=== PATIENT | male | born 1945 | race Caucasian/White ===

== ENCOUNTER → 2016-07-09 | Outpatient (CLI) | payer MEDICARE, OTHER ==
[~2016-07-09] MED LIST: ALN70T PO
--- OUTSIDE RECORDS SUMMARY | 2016-07-09 10:16 | XMS REPORT | Continuity of Care Document ---
Author Author [facility] Organization [facility] Address Unknown Phone Unavailable Care Team Providers Care Die Cast Engineer Name Role Phone Natividad Lake PCP [phone] Source Comments Some departments are not documenting in the electronic medical record. If you do not see the information that you expected, contact Release of Information in the Health Information Management department at [phone] for further assistance in locating additional records.[facility] Active Allergies and Adverse Reactions No Known Allergies Current Medications Prescription Sig. Disp. Refills Start End Date Status Date alendronate (FOSAMAX) 70 Take 1 Tab by mouth Every Active mg tablet Thursday. CALCIUM CARBONATE/VITAMIN Take 1 Tab by mouth Active D2 (CALCIUM + VITAMIN D Daily. PO) metoprolol XL (TOPROL XL) Take 1 Tab by mouth Active 25 mg tablet Daily. oxycodone/acetaminophen Take 1-2 Tabs by mouth 40 0 04/24/20 Active (PERCOCET) 5/325 mg Every 4 Hours as needed 09 tablet for Pain. hyoscyamine (LEVSIN/SL) 1 Tab Every 4 Hours as 40 2 04/24/20 Active 0.125 mg tablet needed. 09 senna/docusate Take 2 Tabs by mouth 60 2 04/24/20 Active (SENOKOT-S) 8.6/50 mg Daily. 09 tablet [place]-3 Fatty Take 1 Cap by mouth Three 0 0 04/24/20 Active Acids-Vitamin E (FISH Times Daily. Avoid this 09 OIL) 1,000 mg Cap medication until quinones catheter comes out. levofloxacin (LEVAQUIN) Take 1 Tab by mouth 16 0 04/24/20 Active 250 mg tablet Daily. 09 polymyxin/bacitracin/soraya/ Apply to affected area 1 0 04/24/20 Active HC (CORTISPORIN) 1 % Three Times Daily. Small 09 topical ointment amount to head of penis/catheter 3-4 times daily to reduce irritation. May not need to fill this script if you take tube from hospital home with you and it lasts until catheter removal. oxybutynin XL (DITROPAN Take 1 Tab by mouth 20 0 04/24/20 Active XL) 15 mg tablet Daily. 09 vitamins, multiple Cap Take 1 Cap by mouth 0 0 04/24/20 Active Daily. Avoid this 09 medication until after the quinones catheter comes out. Active Problems Problem Noted Date Prostate cancer (HCC) 04/24/2009 Prostate cancer (HCC) 04/24/2009 Social History Tobacco Use Types Packs/Day Years Used Date Never Assessed Last Filed Vital Signs Vital Sign Reading Time Taken Blood Pressure 119/63 04/24/2009 11:25 AM SCRAP WORKER Pulse 67 04/24/2009 11:25 AM SCRAP WORKER Temperature 37.4 C (99.3 F) 04/24/2009 11:25 AM SCRAP WORKER Respiratory Rate - - Height 1.854 m (6' 1") 04/03/2009 3:00 PM SCRAP WORKER Weight 87.7 kg (193 lb 5.5 oz) 04/03/2009 3:00 PM SCRAP WORKER Body Mass Index 25.51 04/03/2009 3:00 PM SCRAP WORKER Oxygen Saturation 97% 04/24/2009 11:25 AM SCRAP WORKER Plan of Care Health Maintenance Due Date Last Done Comments Physical (Comprehensive) 1952 Exam Pertussis Vaccine 1957 Tetanus Vaccine 1963 Colorectal Cancer 01/28/1996 Screening Shingles Vaccine 2006 Prevnar/Pneumovax (#1) 2011 Influenza Vaccine 01/24/2016 Results from Last 3 Months Not on file
== END ==
LOC: CARD 10:14
PROVIDERS: ATTEND Internal Medicine
DX: R00.2 Palpitations (principal)
CPT/HCPCS: 93225; 93226

== ENCOUNTER → 2016-07-30 | Outpatient (CLI) | payer MEDICARE, OTHER ==
--- OUTSIDE RECORDS SUMMARY | 2016-07-30 07:33 | XMS REPORT | Continuity of Care Document ---
Author Author [facility] Organization [facility] Address Unknown Phone Unavailable Care Team Providers Care Geometry Tutor Name Role Phone Natividad Lake PCP [phone] Source Comments Some departments are not documenting in the electronic medical record. If you do not see the information that you expected, contact Release of Information in the Health Information Management department at [phone] for further assistance in locating additional records.[facility] Active Allergies and Adverse Reactions No Known [...] Active (SENOKOT-S) 8.6/50 mg Daily. 09 tablet [place]-3 Fatty Take 1 Cap by mouth Three [...] Taken Blood Pressure 119/63 04/24/2009 11:25 AM PIPE STEM SAWYER Pulse 67 04/24/2009 11:25 AM PIPE STEM SAWYER Temperature 37.4 C (99.3 F) 04/24/2009 11:25 AM PIPE STEM SAWYER Respiratory Rate - - Height 1.854 m (6' 1") 04/03/2009 3:00 PM PIPE STEM SAWYER Weight 87.7 kg (193 lb 5.5 oz) 04/03/2009 3:00 PM PIPE STEM SAWYER Body Mass Index 25.51 04/03/2009 3:00 PM PIPE STEM SAWYER Oxygen Saturation 97% 04/24/2009 11:25 AM PIPE STEM SAWYER Plan of Care Health Maintenance Due Date Last Done Comments Physical (Comprehensive) 1952 Exam Pertussis Vaccine 1957 Tetanus Vaccine 1963 Colorectal Cancer 01/28/1996 Screening Shingles Vaccine 2006 Prevnar/Pneumovax (#1) 2011 Influenza Vaccine 01/24/2016 Results from Last 3 Months Not on file
--- NOTE | 2016-07-31 08:43 | ECHOCARDIOGRAPHY REPORT ---
PROCEDURE PHYSICIAN: DONIS PEREZ DATE OF PROCEDURE: 07/30/2016 TWO DIMENSIONAL ECHOCARDIOGRAM REPORT PRIMARY PHYSICIAN: Dr. Montoya OTHER PHYSICIAN: REFERRING PHYSICIAN: ORDERING PHYSICIAN: Dr. Perez INDICATION FOR THE PROCEDURE: 1. Palpitations. 2. Chest discomfort. MEASUREMENTS DERIVED VALUES LV DIAMETER (LAX) NORMALS NORMALS Diastolic 4.1 (3.6-5.2) Eject. Fract. (60%+/-6%) Systolic (2.3-3.9) Diastolic Vol. % Shortening (0.22-0.42) Systolic Vol. Aortic Root 3.4 IVS THICKNESS Diastolic 1.4 (0.6-1.1) LVPW THICKNESS Diastolic 1.3 (0.6-1.1) LA DIAMETER Systolic 3.6 (2.1-3.7) DESCRIPTION: Two-dimensional echocardiography shows normal global left ventricular systolic function with normal regional wall motion. Aortic, mitral and tricuspid valve leaflets, to the extent visualized, seem to have good leaflet excursion. There is no significant pericardial effusion. Doppler imaging shows no evidence of significant valvular regurgitation or stenosis. There is mild concentric left ventricular hypertrophy. Mitral inflow is consistent with grade I diastolic dysfunction of the left ventricle. There is no Doppler evidence of significant valvular stenosis. There is no evidence of significant intracardiac shunt on this transthoracic echocardiographic study. Inferior vena cava appears to be of normal size and does exhibit inspiratory collapse. CONCLUSIONS: 1. Normal global left ventricular systolic function with an ejection fraction of approximately 60 to 65%. 2. No evidence of significant valvular regurgitation or stenosis. 3. Mild concentric left ventricular hypertrophy. Job ID: [id number] Dictated Date: 07/30/2016 17:54:10 Structural Architect Date: 07/31/2016 08:39:13 / wendy
== END ==
LOC: CARD 07:29
PROVIDERS: ATTEND Internal Medicine Cardiovascular Disease
DX: R00.2 Palpitations (principal); R07.89 Other chest pain
CPT/HCPCS: 93306

== ENCOUNTER → 2016-07-31 | Outpatient (CLI) | payer MEDICARE, OTHER ==
[~2016-07-31] MED LIST changes: +CATHETER FLUSH 10 ML SYR IV PRN; +REGADENOSON 0.4 MG/5 ML SYR (LEXISCAN) IV ONE
--- OUTSIDE RECORDS SUMMARY | 2016-07-31 07:32 | XMS REPORT | Continuity of Care Document ---
Author Author [facility] Organization [facility] Address Unknown Phone Unavailable Care Team Providers Care Ocean Rescue Lieutenant Name Role Phone Natividad Lake PCP [phone] Source Comments Some departments are not documenting in the electronic medical record. If you do not see the information that you expected, contact Release of Information in the Health Information Management department at [phone] for further assistance in locating additional records.[facility] [...] Active (SENOKOT-S) 8.6/50 mg Daily. 09 tablet [place]-3 Fatty Take 1 Cap by mouth Three [...] Taken Blood Pressure 119/63 04/24/2009 11:25 AM TAPPER HELPER Pulse 67 04/24/2009 11:25 AM TAPPER HELPER Temperature 37.4 C (99.3 F) 04/24/2009 11:25 AM TAPPER HELPER Respiratory Rate - - Height 1.854 m (6' 1") 04/03/2009 3:00 PM TAPPER HELPER Weight 87.7 kg (193 lb 5.5 oz) 04/03/2009 3:00 PM TAPPER HELPER Body Mass Index 25.51 04/03/2009 3:00 PM TAPPER HELPER Oxygen Saturation 97% 04/24/2009 11:25 AM TAPPER HELPER Plan of Care Health Maintenance Due Date Last Done Comments Physical (Comprehensive) 1952 Exam Pertussis Vaccine 1957 Tetanus Vaccine 1963 Colorectal Cancer 01/28/1996 Screening Shingles Vaccine 2006 Prevnar/Pneumovax (#1) 2011 Influenza Vaccine 01/24/2016 Results from Last 3 Months Not on file
[2016-07-31 09:23] VITALS: BP 139/79
--- NOTE | 2016-07-31 12:36 | STRESS TEST ---
PROCEDURE PHYSICIAN: DONIS PEREZ RESTING AND POST REGADENOSON TECHNETIUM 99M TETROFOSMIN SPECT CT IMAGING DATE OF PROCEDURE: 07/31/2016 ORDERING PHYSICIAN: Dr. Perez PRIMARY PHYSICIAN: Dr. Montoya CLINICAL DIAGNOSIS: Palpitations, chest discomfort. Baseline images were carried out after injection of 10.18 mCi of technetium 99m tetrofosmin. This was followed by 0.4 mg of regadenoson and 30.7 mCi of technetium 99m tetrofosmin for stress imaging. The electrocardiogram showed sinus without any distinct ST segment changes. Isolated premature contractions were seen during the study. The patient tolerated the procedure well. Review of images at rest and following stress, does not indicate any significant perfusion defects consistent with significant myocardial ischemia or infarction. Gated images show normal global left ventricular systolic function with normal regional wall motion. Left ventricular ejection fraction is calculated to be 63%. Left ventricular end-diastolic volume is 75 milliliters. TID is absent (1.1). CONCLUSIONS: 1. No evidence of significant myocardial ischemia or infarction on this study. 2. Normal regional normal motion. 3. Normal global left ventricular systolic function with a calculated ejection fraction of 63%. Job ID: [id number] Dictated Date: 07/31/2016 11:18:35 Contact Finger Assembler Date: 07/31/2016 12:31:14 / joni
== END ==
LOC: CARD 07:29
PROVIDERS: ATTEND Nurse Practitioner Family
DX: R00.2 Palpitations (principal); R07.89 Other chest pain
CPT/HCPCS: 78452; 93017

== ENCOUNTER → 2017-06-25 | Outpatient (CLI) | payer MEDICARE, OTHER ==
[~2017-06-25] MED LIST changes: -CATHETER FLUSH 10 ML SYR IV PRN; -REGADENOSON 0.4 MG/5 ML SYR (LEXISCAN) IV ONE
--- NOTE | 2017-06-25 14:28 | Diagnostic Imaging Report ---
INDICATION: Constipation and abdominal pain. Time of exam: 1:52 PM A single view of the abdomen was obtained. The bowel gas pattern is nonobstructive. There is moderate stool present particularly in the right colon. Small bowel is nondilated. No pathologic calcifications are seen. There is lower lumbar degenerative disc disease noted. IMPRESSION: Moderate stool in the right and transverse colon suggestive of constipation. No other significant abnormality is seen. Dictated by: Dictated on workstation # [id number]
== END ==
LOC: RAD 13:21
PROVIDERS: ATTEND Nurse Practitioner
DX: K59.00 Constipation, unspecified (principal); G89.29 Other chronic pain
CPT/HCPCS: 74018

== ENCOUNTER 2018-10-02 15:52 | Emergency (ER) | payer MEDICARE, OTHER ==
[~2018-10-02] VITALS: Ht 185.4 cm; Wt 81.6 kg
[2018-10-02 16:16] LABS: BILIRUBIN,URINE NEGATIVE (NEGATIVE); CLARITY,URINE CLEAR; COLOR,URINE YELLOW; GLUCOSE, URINE (UA) NEGATIVE (NEGATIVE); KETONES,URINE NEGATIVE (NEGATIVE); LEUKOCYTE ESTERASE ,URINE NEGATIVE (NEGATIVE); NITRITE,URINE NEGATIVE (NEGATIVE); PH,URINE 7 (5-9); PROTEIN,URINE NEGATIVE (NEGATIVE); UROBILINOGEN,URINE NORMAL (NORMAL)
--- NOTE | 2018-10-02 16:19 | ED Abdominal Pain ---
General Chief Complaint: Abdominal/GI Problems Stated Complaint: LFT SIDE PAINS Nursing Triage Note: ARRIVED VIA AMB TO TRIAGE WITH LLQ PAIN STARTING AT NOON AFTER LUNCH. Sepsis Screen: No Definite Risk Source of Information: Patient Exam Limitations: No Limitations History of Present Illness Date Seen by Provider: October 02, 2018 Time Seen by Provider: 16:05 Initial Comments The patient presents to ER by private conveyance with his spouse and chief complaint of some left lower quadrant abdominal pain started around noon just posterior sitting down to eat [employer]. He is not having any nausea or vomiting fevers chills or diarrhea. He thinks he may have had a history of diverticulosis on previous colonoscopies but he's never had diverticulitis. He had a bowel movement yesterday. He typically only has a bowel movement twice a week and he said this bowel movement was normal. No history of kidney stones. He does not take any prescription medicines. He does take ibuprofen for rotator cuff pain in his left shoulder as well as fish oil and some other over-the- counter multivitamins. He had a laparoscopic prostatectomy many years ago but does not follow-up with urology anymore. He is known to Dr. Gonzalez. Allergies and Home Medications Allergies Coded Allergies: No Known Drug Allergies (Unverified , 05/12/11) Patient Home Medication List Home Medication List Reviewed: Yes Review of Systems Review of Systems Constitutional: No chills, No diaphoresis EENTM: No Blurred Vision, No Double Vision Respiratory: Denies Cough, Denies Shortness of Air Cardiovascular: Denies Chest Pain, Denies Lightheadedness Gastrointestinal: Abdominal Pain; Denies Constipated, Denies Diarrhea, Denies Nausea Genitourinary: Denies Burning, Denies Discharge, Denies Hematuria Musculoskeletal: No back pain, No joint pain Past Jswlmmc-Xjlosq-Kdvikw Hx Patient Social History Alcohol Use: Regular Use (2-3 drinks day) Alcohol Beverage of Choice: Beer, Whiskey Recreational Drug Use: No Smoking Status: Former Smoker Type Used: Cigars Former Smoker, Quit: October 06, 2008 Recent Foreign Travel: No Contact w/Someone Who Travel: No Recent Infectious Disease Expo: No Immunizations Up To Date Date of Pneumonia Vaccine: Mar 11, 2013 Date of Influenza Vaccine: Mar 12, 2011 Physical Exam Vital Signs Vital Signs - First Documented 10/02/18 15:55 Temp 97.7 Pulse 68 Resp 16 B/P (MAP) 196/104 (134) Pulse Ox 98 O2 Delivery Room Air Capillary Refill : Less Than 3 Seconds Height/Weight/BMI Height: 6'1.00" Weight: 180lbs. oz. 81.691151on; BMI Method:Stated General Appearance: WD/WN, no apparent distress HEENT: normal ENT inspection, TMs normal, pharynx normal Neck: full range of motion, normal inspection Respiratory: lungs clear, normal breath sounds, no respiratory distress, no accessory muscle use Cardiovascular: normal peripheral pulses, regular rate, rhythm, no edema Peripheral Pulses: 2+ Dorsalis Pedis (R), 2+ Left Dors-Pedis (L) Gastrointestinal: normal bowel sounds, non tender, soft, no organomegaly Extremities: normal inspection, normal capillary refill Back: normal inspection; No CVA tenderness (R); CVA tenderness (L) Neurologic/Psychiatric: alert, oriented x 3 Progress/Results/Core Measures Results/Orders Lab Results Laboratory Tests Test 10/02/18 16:04 10/02/18 16:11 Range/Units Urine Color YELLOW Urine Clarity CLEAR Urine pH 7 5-9 Urine Specific [place] 1.005 L 1.016-1.022 Urine Protein NEGATIVE NEGATIVE Urine Glucose (UA) NEGATIVE NEGATIVE Urine Ketones NEGATIVE NEGATIVE Urine Nitrite NEGATIVE NEGATIVE Urine Bilirubin NEGATIVE NEGATIVE Urine Urobilinogen NORMAL NORMAL MG/DL Urine Leukocyte Esterase NEGATIVE NEGATIVE Urine RBC (Auto) NEGATIVE NEGATIVE Urine RBC NONE /HPF Urine WBC NONE /HPF Urine Squamous Epithelial Cells RARE /HPF Urine Crystals NONE /LPF Urine Bacteria NEGATIVE /HPF Urine Casts NONE /LPF Urine Mucus NEGATIVE /LPF Urine Culture Indicated NO White Blood Count 6.8 4.3-11.0 10^3/uL Red Blood Count 4.39 4.35-5.85 10^6/uL Hemoglobin 14.2 13.3-17.7 G/DL Hematocrit 42 40-54 % Mean Corpuscular Volume 95 80-99 FL Mean Corpuscular Hemoglobin 32 25-34 PG Mean Corpuscular Hemoglobin Concent 34 32-36 G/DL Red Cell Distribution Width 12.6 10.0-14.5 % Platelet Count 263 130-400 10^3/uL Mean Platelet Volume 9.5 7.4-10.4 FL Neutrophils (%) (Auto) 49 42-75 % Lymphocytes (%) (Auto) 34 12-44 % Monocytes (%) (Auto) 11 0-12 % Eosinophils (%) (Auto) 5 0-10 % Basophils (%) (Auto) 1 0-10 % Neutrophils # (Auto) 3.3 1.8-7.8 X 10^3 Lymphocytes # (Auto) 2.3 1.0-4.0 X 10^3 Monocytes # (Auto) 0.8 0.0-1.0 X 10^3 Eosinophils # (Auto) 0.3 0.0-0.3 10^3/uL Basophils # (Auto) 0.0 0.0-0.1 10^3/uL Sodium Level 141 135-145 MMOL/L Potassium Level 4.0 3.6-5.0 MMOL/L Chloride Level 107 98-107 MMOL/L Carbon Dioxide Level 24 21-32 MMOL/L Anion Gap 10 5-14 MMOL/L Blood Urea Nitrogen 21 H 7-18 MG/DL Creatinine 1.24 0.60-1.30 MG/DL Estimat Glomerular Filtration Rate 57 BUN/Creatinine Ratio 17 Glucose Level 91 70-105 MG/DL Calcium Level 9.2 8.5-10.1 MG/DL Corrected Calcium 9.0 8.5-10.1 MG/DL Total Bilirubin 0.4 0.1-1.0 MG/DL Aspartate Amino Transf (AST/SGOT) 23 5-34 U/L Alanine Aminotransferase (ALT/SGPT) 25 0-55 U/L Alkaline Phosphatase 63 40-136 U/L C-Reactive Protein High Sensitivity 0.08 0.00-0.50 MG/DL Total Protein 6.7 6.4-8.2 GM/DL Albumin 4.2 3.2-4.5 GM/DL My Orders Orders - ELPIDIO MCLEOD Cbc With Automated Diff (10/02/18 16:09) Comprehensive Metabolic Panel (10/02/18 16:09) Hs C Reactive Protein (10/02/18 16:09) Ua Culture If Indicated (10/02/18 16:09) Ed Iv/Invasive Line Start (10/02/18 16:09) Ketorolac Injection (Toradol Injection) (10/02/18 16:45) Ct Abd/Pelvis Wo(Kidney Stone) (10/02/18 16:53) Medications Given in ED Current Medications Medications Dose Ordered Sig/Mariela Route Start Time Stop Time Status Last Admin Dose Admin Ketorolac Tromethamine 30 mg ONCE ONCE IVP 10/02/18 16:45 10/02/18 16:46 DC 10/02/18 16:40 30 MG Vital Signs/I&O 10/02/18 15:55 Temp 97.7 Pulse 68 Resp 16 B/P (MAP) 196/104 (134) Pulse Ox 98 O2 Delivery Room Air Blood Pressure Mean: 134 Progress Progress Note : Time: 16:21 Progress Note Urinalysis and labs. Suspect kidney stone versus less likely diverticulitis. Diagnostic Imaging Diagonstic Imaging: CT Plain Films/CT/US/NM/MRI: abdomen, pelvis Comments [facility] [place] NAME: DHARMESH P[facility]TER [facility] REC#: [id number] PT STATUS: REG ER : 1945 PHYSICIAN: ELPIDIO MCLEOD MD ADMIT DATE: 10/02/18/ER Draft Date of Exam:10/02/18 CT ABD/PELVIS WO(KIDNEY STONE) INDICATION: Lower abdominal pain. EXAMINATION: CT abdomen and pelvis without IV contrast. COMPARISON: 04/21/2009. FINDINGS: Visualized portions of the lung bases show dependent atelectatic changes. There is no pleural fluid or free intraperitoneal air. The liver and gallbladder appear normal. The spleen, adrenals and pancreas appear normal. Right kidney appears unremarkable. The left kidney shows hydronephrosis of moderate severity with mild hydroureter with a stone at the left UVJ, measuring about 3 mm. There is no retroperitoneal mass or adenopathy. There is no ascites or abnormal fluid collection. Visualized bowel loops are prominent with stool throughout the colon with no overt obstruction or ileus. There are uncomplicated sigmoid diverticuli. IMPRESSION: Left hydronephrosis and mild left hydroureter down to the level of a 3 mm stone at the left UVJ. No right-sided stones are visualized. There is prominent stool throughout the colon with uncomplicated sigmoid diverticuli. There is no abnormal fluid collection. Dictated on workstation # [id number] Dict: 10/02/18 1725 Trans: 10/02/[address] [facility] [id number] Interpreted by: DEB CHANG MD Electronically signed by: Reviewed: Reviewed by Me Departure Impression Primary Impression: Ureteral calculus Disposition: 01 HOME, SELF-CARE Condition: Improved Departure-Patient Inst. Decision time for Depature: 18:03 Referrals: GABY LIN MD (PCP/Family) Primary Care Physician Patient Instructions: Kidney Stones (DC) Add. Discharge Instructions: photoengraving supervisor the antibiotics and take them twice a day until completion. photoengraving supervisor the Flomax take it once a day at nighttime to help pass the kidney stone until the stone is out. photoengraving supervisor the Zofran use it 1 tablet every 6 hours as needed for nausea. photoengraving supervisor the hydrocodone and use it 1 tablet every 6 hours as needed for pain. You can also use ibuprofen 800 mg every 8 hours as needed for pain. Drink lots of fluids. Strain your urine until you catch the stone. Symptoms usually resolve 1-2 days later. Take the stone with you to a urology appointment that she can set up on Thursday. Call Dr. Lake's office to get an appointment. All discharge instructions reviewed with patient and/or family. Voiced understanding. Scripts Ondansetron (Ondansetron Odt) 4 Mg Tab.rapdis 4 MG PO Q6H PRN for NAUSEA/VOMITING, #12 TAB 0 Refills Prov: ELPIDIO MCLEOD 10/02/18 Tamsulosin HCl (Flomax) 0.4 Mg Cap 0.4 MG PO HS for 7 Days, #7 CAP 0 Refills Prov: ELPIDIO MCLEOD 10/02/18 Cephalexin (Cephalexin) 500 Mg Tablet 500 MG PO BID for 7 Days, #14 TAB 0 Refills Prov: ELPIDIO MCLEOD 10/02/18 Hydrocodone Bit/Acetaminophen (Hydrocodone/Acetaminophen 5/325mg Tablet) 1 Tab Tab 1-2 EACH PO Q6H PRN for PAIN-MODERATE MDD 10 for 3 Days, #14 TAB 0 Refills Prov: ELPIDIO MCLEOD 10/02/18 ELPIDIO MCLEOD October 02, 2018 16:19
[2018-10-02 16:21] LABS: BACTERIA,URINE NEGATIVE /HPF; SQUAMOUS EPITHELIAL CELL,UR RARE /HPF
[2018-10-02 16:25] LABS: BASOPHILS % (AUTO) 1 % (0-10); EOSINOPHILS # (AUTO) 0.3 10^3/uL (0.0-0.3); EOSINOPHILS % (AUTO) 5 % (0-10); HEMATOCRIT 42 % (40-54); HEMOGLOBIN 14.2 G/DL (13.3-17.7); LYMPHOCYTES # (AUTO) 2.3 X 10^3 (1.0-4.0); LYMPHOCYTES % (AUTO) 34 % (12-44); MEAN CORPUSCULAR HEMOGLOBIN 32 PG (25-34); MEAN CORPUSCULAR HGB CONC 34 G/DL (32-36); MEAN CORPUSCULAR VOLUME 95 FL (80-99); MEAN PLATELET VOLUME 9.5 FL (7.4-10.4); MONOCYTES # (AUTO) 0.8 X 10^3 (0.0-1.0); MONOCYTES % (AUTO) 11 % (0-12); NEUTROPHILS # (AUTO) 3.3 X 10^3 (1.8-7.8); NEUTROPHILS % (AUTO) 49 % (42-75); PLATELET COUNT 263 10^3/uL (130-400); RED CELL DISTRIBUTION WIDTH 12.6 % (10.0-14.5); WHITE BLOOD COUNT 6.8 10^3/uL (4.3-11.0)
[2018-10-02 16:45] LABS: ALBUMIN 4.2 GM/DL (3.2-4.5); BILIRUBIN,TOTAL 0.4 MG/DL (0.1-1.0); CALCIUM 9.2 MG/DL (8.5-10.1); CREATININE SERUM 1.24 MG/DL (0.60-1.30); TOTAL PROTEIN 6.7 GM/DL (6.4-8.2)
[2018-10-02] MEDS ORDERED: KETOROLAC 30 MG/ML VIAL IVP ONE (16:45)
--- NOTE | 2018-10-02 17:34 | Diagnostic Imaging Report ---
INDICATION: Lower abdominal pain. EXAMINATION: CT abdomen and pelvis without IV contrast. COMPARISON: 04/21/2009. FINDINGS: Visualized portions of the lung bases show dependent atelectatic changes. There is no pleural fluid or free intraperitoneal air. The liver and gallbladder appear normal. The spleen, adrenals and pancreas appear normal. Right kidney appears unremarkable. The left kidney shows hydronephrosis of moderate severity with mild hydroureter with a stone at the left UVJ, measuring about 3 mm. There is no retroperitoneal mass or adenopathy. There is no ascites or abnormal fluid collection. Visualized bowel loops are prominent with stool throughout the colon with no overt obstruction or ileus. There are uncomplicated sigmoid diverticuli. IMPRESSION: Left hydronephrosis and mild left hydroureter down to the level of a 3 mm stone at the left UVJ. No right-sided stones are visualized. There is prominent stool throughout the colon with uncomplicated sigmoid diverticuli. There is no abnormal fluid collection. Dictated by: Dictated on workstation # [id number]
--- NOTE | 2018-10-02 17:36 | NUR ---
TO ROOM PATIENT REPORTS PAIN MUCH BETTER
[2018-10-02] MEDS ORDERED: CEPH500T PO (18:13)
[2018-10-02] MEDS ORDERED: ACHD5005 PO (18:13)
[2018-10-02] MEDS ORDERED: ONDA4TAB11 PO (18:13)
[2018-10-02] MEDS ORDERED: TAMS0.4C98 PO (18:13)
[2018-10-02] MEDS ORDERED: cefTRIAXone FOR IV USE 1,000 MG in WATER (STERILE) FOR INJECTION 10 ML IV ONE (18:15)
[2018-10-02 18:37] VITALS: BP 157/73
== END 2018-10-02 18:37 | disposition home or self-care (01) ==
LOC: EDUNIT# 15:52 → ER 15:53
DX: N13.2 Hydronephrosis with renal and ureteral calculous obstruction (principal); Z90.79 Acquired absence of other genital organ(s); Z87.891 Personal history of nicotine dependence
CPT/HCPCS: 36415; 74176; 80053; 81000; 85025; 86141; 96365; 96375

== ENCOUNTER → 2020-02-28 | Outpatient (CLI) | payer MEDICARE, OTHER ==
[~2020-02-28] VITALS: Ht 185 cm; Wt 85.0 kg
[~2020-02-28] MED LIST changes: +ACHD5005 PO; +CATHETER FLUSH 10 ML SYR IV PRN; +CEPH500T PO; +ONDA4TAB11 PO; +REGADENOSON 0.4 MG/5 ML SYR (LEXISCAN) IV ONE; +TMSL.4C PO
[2020-02-28 09:14] VITALS: BP 174/110
--- NOTE | 2020-02-28 12:30 | STRESS TEST ---
DATE OF SERVICE: 02/28/2020 RESTING AND POST REGADENOSON TECHNETIUM-99M TETROFOSMIN SPECT CT IMAGING ORDERING PHYSICIAN: Dr. Perez. PRIMARY PHYSICIAN: Dr. Montoya. CLINICAL DIAGNOSIS: Chest discomfort. Baseline images were carried out after injection of 10.55 mCi of technetium-99m Tetrofosmin. This was followed by 0.4 mg regadenoson and 29.5 mCi of technetium-99m Tetrofosmin for stress imaging. The patient tolerated the procedure well. He did not report symptoms. The electrocardiogram showed sinus rhythm at baseline. On the electrocardiogram, a prior septal myocardial infarction cannot be excluded. The electrocardiogram did not change with the regadenoson infusion. Review of images at rest and following stress indicates a basal inferior perfusion defect that is small to moderate in size and that appears transient. Gated images show normal global left ventricular systolic function with normal regional wall motion. Left ventricular ejection fraction is calculated to be 71%. Left ventricular end diastolic volume is 62 mL. TID is absent (0.88). The study is technically difficult because of considerable patient motion, especially during image acquisition during stress. CONCLUSIONS: 1. This study is indicative of a small to moderate amount of basal inferior ischemia. Study is technically difficult on account of patient motion during stress image acquisition. 2. Normal regional wall motion. 3. Normal global left ventricular systolic function with a calculated ejection fraction of 71%. Job ID: [id number] DocumentID: [id number] Dictated Date: 02/28/2020 12:09:23 Ride Mechanic Date: 02/28/2020 12:29:53 Dictated By: DONIS PEREZ MD, MA, FACP, FACC,
== END ==
LOC: CARD 07:30
PROVIDERS: ATTEND Internal Medicine Cardiovascular Disease
DX: R07.89 Other chest pain (principal)
CPT/HCPCS: 78452; 93017; A9502

== ENCOUNTER → 2020-03-02 | Outpatient (CLI) | payer MEDICARE, OTHER ==
[~2020-03-02] MED LIST changes: -CATHETER FLUSH 10 ML SYR IV PRN; -REGADENOSON 0.4 MG/5 ML SYR (LEXISCAN) IV ONE
== END ==
LOC: LABNPT 05:35
PROVIDERS: ATTEND Internal Medicine Cardiovascular Disease
DX: Z01.812 Encounter for preprocedural laboratory examination (principal); Z20.828 Contact with and (suspected) exposure to other viral communicable diseases
CPT/HCPCS: 87635

== ENCOUNTER 2020-03-27 06:40 | Day surgery (SDC) | payer MEDICARE, OTHER ==
[~2020-03-27] VITALS: Ht 185 cm; Wt 81.0 kg
[2020-03-27] VITALS (9 sets, daily range): BP systolic 120–152; BP diastolic 72–94
[2020-03-27] MEDS ORDERED: LIDOCAINE 1% INJ 20 ML 20 ML VIAL ONE (07:03)
[2020-03-27] MEDS ORDERED: HEParin (CATH LAB) 2,000 ML IV ONE (07:03)
[2020-03-27] MEDS ORDERED: NS IV 1000 ML 1,000 ML ONE (07:03)
[2020-03-27] MEDS ORDERED: NS IV 1000 ML 1,000 ML IV SCH ×2 (07:15→09:15)
[2020-03-27 07:23] LABS: HEMOGLOBIN 14.2 g/dL (13.3-17.7); MEAN PLATELET VOLUME 9.3 fL (9.0-12.2); WHITE BLOOD COUNT 7.6 10^3/uL (4.3-11.0)
[2020-03-27] MEDS ORDERED: VIT1CAPS8 PO (07:24)
[2020-03-27] MEDS ORDERED: MTP25TSR PO (07:24)
[2020-03-27] MEDS ORDERED: ASPI-999 PO (07:24)
[2020-03-27] MEDS ORDERED: FAMO40TA6 PO (07:24)
[2020-03-27] MEDS ORDERED: MELA5TAB19 PO (07:24)
[2020-03-27 07:34] LABS: PROTHROMBIN TIME PATIENT 13.5 SEC (12.2-14.7)
[2020-03-27 07:43] LABS: ALANINE AMINOTRANSFERASE 16 U/L (0-55); ALKALINE PHOSPHATASE 61 U/L (40-136); BILIRUBIN,TOTAL 0.8 MG/DL (0.1-1.0); BUN/CREATININE RATIO 16; CALCIUM 8.7 MG/DL (8.5-10.1); CARBON DIOXIDE 27 MMOL/L (21-32); CHLORIDE 105 MMOL/L (98-107); CHOLESTEROL 179 MG/DL (< 200); CREATININE SERUM 1.09 MG/DL (0.60-1.30); GFR ESTIMATED > 60; GLUCOSE 100 MG/DL (70-105); HDL CHOLESTEROL 51 MG/DL (40-60); SODIUM 143 MMOL/L (135-145); TOTAL PROTEIN 6.7 GM/DL (6.4-8.2); TRIGLYCERIDES 94 MG/DL (<150); VLDL CHOLESTEROL 19 MG/DL (5-40)
[2020-03-27] MEDS ORDERED: MIDAZOLAM 5 MG/5 ML (VERSED) VIAL ONE (08:21)
[2020-03-27] MEDS ORDERED: fentaNYL INJECTION 100 MCG/2 ML AMP ONE (08:21)
[2020-03-27] MEDS ORDERED: PATIENT MAY USE OWN MEDS, ALL PO SCH (09:15)
--- NOTE | 2020-03-27 09:22 | Discharge Inst-Cardiology ---
Discharge Inst-Cardiac Discharge Medications Continued Medications: Aspirin (Aspirin) 81 Mg Tab.chew 81 MG PO DAILY, TAB Famotidine (Famotidine) 40 Mg Tablet 20 MG PO BID, TAB TAKES 1/2 OF 40 MG TABLET TWICE DAILY Melatonin (Melatonin) 5 Mg Tab.rapdis 5 MG PO HS, TAB Metoprolol Succinate (Metoprolol Succinate) 25 Mg Tab.er.24h 25 MG PO DAILY, TAB Vit C/E/Zn/Coppr/Lutein/Zeaxan (Ocuvite Lutein & Zeaxanthin Cp) 1 Each Capsule 1 EACH PO DAILY, DONIS HAYNES MD FACP FAC CCDS Mar 27, 2020 09:22
--- NOTE | 2020-03-27 09:23 | Discharge Inst-Post CATH ---
Discharge Inst-CATH/EP Post Cardiac Cath/EP D/C Inst Follow Up/Plan F/u with Dr Perez in 2 weeks ACTIVITY * Go Home directly and rest. * Limit activity of the leg (or wrist if it was used) for 7 days including aerobics, swimming, jogging, bicycling, etc. * Restrict stair-climbing for 7 days if possible, if not, climb up with your no n-cath leg, then bring together on the same step. * Avoid lifting, pushing, pulling or excessive movement of the affected ext remity for 7 days. * Customary sexual activity may be resumed after 2 days-use caution not to use a position that strains or causes pain to the affected extremity. * No driving for 24 hours. * NO SMOKING. * Avoid straining for bowel movements for 7 days. * Gentle walking on level ground is allowed. * Returning to work will depend on the type of procedure and the results. Your doctor will discuss this with you. CALL YOUR DOCTOR FOR ANY OF THE FOLLOWING: *If bleeding from the puncture site occurs- Apply gentle pressure to site with clean cloth and call your doctor or EMS. * If a knot or lump forms under the skin, increases in size, or causes pain. * If bruising appears to be worsening or moving further down your leg instead of disappearing. * Temperature above 101 F. CARE OF YOUR GROIN INCISION; * Bruising or purple discoloration of the skin near the puncture site is common. * You may shower only, no bathtub bathing for 5 days. Be careful to avoid slipping as your leg may feel stiff. * If a closure device was used on your femoral artery, please see the attached guide regarding care of the device and your leg. * Leave dressing on FOR 24 hours. CARE OF YOUR WRIST INCISION; * Bruising or purple discoloration of the skin near the puncture site is common. * You may shower. * DO NOT submerge wrist. * Leave dressing on FOR 24 hours. DONIS PEREZ MD [facility] Mar 27, 2020 09:23
--- NOTE | 2020-03-27 09:24 | Cardiac Procedure Note-CS/ASA ---
Pre-Procedure Note Pre-Op Procedure Note H&P Reviewed The H&P was reviewed, patient examined and no changes noted. Date H&P Reviewed: Mar 27, 2020 Time H&P Reviewed: 08:30 Conscious Sedation Pre-Proced Time 08:30 ASA Score 3 For ASA 3 and 4: Consider anesthesia and medical clearance. Also, for patients with a history of failed moderate sedation consider anesthesia. Airway Lungs Heart ASA score ASA 1: a normal healthy patient ASA 2: a patient with a mild systemic disease (mid diabetes, controlled hypertension, obesity ASA 3: a patient with a severe systemic disease that limits activity (angina, COPD, prior Myocardial infarction) ASA 4: a patient with an incapacitating disease that is a constant threat to life (CHF, renal failure) ASA 5: a moribund patient not expected to survive 24 hrs. (ruptured aneurysm) ASA 6: a declared brain- patient whose organs are being harvested. For emergent operations, add the letter E after the classification Mallampati Classification Grade 2 Sedation Plan Analgesia, Amnesia, Plan communicated to team members, Discussed options with patient/fam, Discussed risks with patient/fam The patient is an appropriate candidate to undergo the planned procedure, sedation, and anesthesia. The patient immediately re-assessed prior to indication. DONIS JACOBO MD FACP FAC CCDS Mar 27, 2020 09:24
--- NOTE | 2020-03-27 09:53 | CARDIAC CATHETERIZATION ---
DATE OF SERVICE: 03/27/2020 CARDIAC CATHETERIZATION REPORT The patient is a 75-year-old gentleman with coronary risk factors and who had a myocardial perfusion imaging study done recently, which was indicative of basal inferior ischemia. Cardiac catheterization was carried out after having obtained an informed consent. DESCRIPTION OF PROCEDURE: He was brought to the cardiac catheterization laboratory in a fasting state. Right groin was prepared and draped in the usual sterile fashion. Lidocaine 1% was used for local anesthesia. Modified Seldinger technique was used to advance a 5-Andorran sheath in the right femoral artery, 5-Andorran JL4.5 catheter was used for left coronary angiogram. 5-Andorran JR4 catheter was used for right coronary angiography. A 5-Andorran pigtail catheter was used for left heart catheterization and left ventricular angiography. The pigtail catheter was pulled back from the left ventricle into the ascending aorta and then removed. Angiography of the right femoral artery was carried out through the sheath. Mynx was used to achieve hemostasis. He tolerated the procedure well. HEMODYNAMICS: Left ventricular end-diastolic pressure following coronary angiography was 9 mmHg. There was no significant pressure gradient on pullback across the aortic valve. Ascending aortic pressure was 114/58 with a mean of 84 mmHg. Left ventricular end-diastolic pressure was 9 mmHg. CORONARY ANGIOGRAPHY: Left main coronary artery, left anterior descending artery, left circumflex artery, right coronary artery do not exhibit any angiographically significant coronary artery disease. Right coronary artery is dominant. LEFT VENTRICULAR ANGIOGRAPHY: Left ventricular angiography was carried down to the right anterior oblique projection. Global left ventricular systolic function is well preserved. Left ventricular ejection fraction 55% to 60%. No distinct regional wall motion abnormalities seen in this view. CONCLUSIONS: 1. No angiographically significant coronary artery disease. 2. Normal left ventricular end-diastolic pressure. 3. Normal global left ventricular systolic function with ejection fraction 55% to 60%. DISCUSSION AND RECOMMENDATIONS: Based on results of the study, the myocardial perfusion imaging study appears to have been false positive. Continuing risk factor modification was advised. This was reviewed and discussed with him and outpatient followup is advised. Job ID: [id number] DocumentID: [id number] Dictated Date: 03/27/2020 09:01:23 Field Operations Manager Date: 03/27/2020 09:52:41 Dictated By: DONIS JACOBO MD, MA, FACP, FACC, MTDD
== END 2020-03-27 12:15 | disposition home or self-care (01) ==
LOC: CATH 06:40 → SDC 09:22 → CATH 12:15
PROVIDERS: ATTEND Internal Medicine Cardiovascular Disease
DX: R07.89 Other chest pain (principal); R00.2 Palpitations; H91.90 Unspecified hearing loss, unspecified ear; Z79.82 Long term (current) use of aspirin; Z79.899 Other long term (current) drug therapy; Z87.891 Personal history of nicotine dependence; Z80.0 Family history of malignant neoplasm of digestive organs; Z80.42 Family history of malignant neoplasm of prostate; Z82.49 Family history of ischemic heart disease and other diseases of the circulatory system
CPT/HCPCS: 80053; 80061; 85027; 85610; 85730; 87081; 93458; C1760; C1894; 36415

== ENCOUNTER 2020-07-26 07:10 | Outpatient (RCR) | payer MEDICARE, OTHER ==
[~2020-07-26] VITALS: Ht 182.9 cm; Wt 81.7 kg
[~2020-07-26 07:10] MED LIST changes: +ASPI-999 PO; +FAMO40TA6 PO; +MELA5TAB19 PO; +MTP25TSR PO; +VIT1CAPS8 PO
[2020-07-26] MEDS ORDERED: DOCU-238 PO (13:13)
== END 2020-08-09 09:30 | disposition home or self-care (01) ==
LOC: PREOP 07:10
PROVIDERS: ATTEND Internal Medicine
DX: Z01.818 Encounter for other preprocedural examination (principal)

== ENCOUNTER 2020-08-03 07:25 | Day surgery (SDC) | payer MEDICARE, OTHER ==
--- NOTE | 2020-07-24 16:04 | HISTORY AND PHYSICAL ---
DATE OF SERVICE: COLONOSCOPY HISTORY AND PHYSICAL REFERRING PHYSICIAN: Dr. Montoya. INDICATION FOR THE PROCEDURE: The patient reports a year history of constipation and has a past history of adenomatous colonic polyps. He last underwent colonoscopy 5 years ago in 06/2015, at which time, two tubular adenomas were removed, both from the proximal ascending colon. The patient reported medication change. He takes one blood pressure medication. He was not sure of the name and has had no other medication use including [id number]. He denies significant abdominal pain. He starts to get uncomfortable when he has not had a bowel movement in 5 or 6 days and has been averaging weekly bowel movements, taking a laxative. He was recently started on Linzess but reports that it causes diarrhea. He will take it, but with crepitation as he is not sure when it will work and when it does, there is significant urgency. He denies blood in the form of melena or bright red blood per rectum and otherwise been feeling well. He underwent cardiac catheterization in the fall of last year per Dr. Perez that was unremarkable, done for chest discomfort. His ejection fraction was also normal, estimated at 55% to 60%. PAST MEDICAL HISTORY: Significant for hypertension and past prostate cancer for which he underwent prostatectomy four years ago. FAMILY HISTORY: He has one grandfather who was diagnosed with colon cancer at age of 55. His father at age of 72 secondary to congestive heart failure with complications of coronary artery disease. Mother, he reports of natural cause at the age of 86. SOCIAL HISTORY: He is retired, but restores cars. He has a past cigar smoking history but quit 6-7 years ago. He reports a glass of wine in the evening, almost never drinks more than one. REVIEW OF SYSTEMS: CONSTITUTIONAL: Denies night sweats, chills, fever, change in weight. GASTROINTESTINAL: As noted in the HPI. PULMONARY: Denies cough, chest pain, shortness of breath or dyspnea on exertion. CARDIOVASCULAR: He has had no recent chest discomfort. Negative heart catheterization in the fall with no syncope or presyncope. PHYSICAL EXAMINATION: GENERAL: Reveals a well-appearing white male, appeared to be in no acute distress. VITAL SIGNS: Blood pressure 140/80. HEENT: Unremarkable. CHEST: Clear. CARDIOVASCULAR: Revealed a regular rate and rhythm without murmur, S3 or S4. ABDOMEN: Soft, supple without mass, organomegaly or tenderness. No bruits noted. Bowel sounds noted in all 4 quadrants. EXTREMITIES: Reveal no cyanosis, clubbing or edema. ASSESSMENT AND PLAN: The patient is set up for diagnostic colonoscopy due to past history of colon polyps and a history of constipation. The patient was not sure as to whether or not he had any blood work done recently, would consider ruling out hypercalcemia and hypothyroidism. We did discuss the importance of increased water intake, increase fiber and regular physical activity as the patient's history suggests that he is not drinking enough water, getting any regular physical activity with a relatively low fiber diet. I thank you for the referral of this pleasant gentleman. Job ID: [id number] DocumentID: [id number] Dictated Date: 07/24/2020 11:05:07 Formwork Carpenter Date: 07/24/2020 11:35:49 Dictated By: DAHLIA WATTS MD
[~2020-08-03] VITALS: Ht 182.9 cm; Wt 81.7 kg
[2020-08-03] VITALS (11 sets, daily range): BP systolic 118–174; BP diastolic 73–103
[~2020-08-03 07:25] MED LIST changes: +D5 LR IV SOLUTION 1,000 ML IV ONE; +DOCU-238 PO
[2020-08-03] MEDS ORDERED: D5 LR IV SOLUTION 1,000 ML IV STA (07:34)
[2020-08-03] MEDS ORDERED: LIDOCAINE JELLY 2% 6 ML SYRINGE MM PRN (07:45)
[2020-08-03] MEDS ORDERED: MIDAZOLAM 5 MG/5 ML (VERSED) VIAL IV ONE (07:45)
[2020-08-03] MEDS ORDERED: fentaNYL INJECTION 100 MCG/2 ML AMP IVP ONE (07:45)
[2020-08-03] MEDS ORDERED: MIDAZOLAM 5 MG/5 ML (VERSED) VIAL ONE (07:54)
[2020-08-03] MEDS ORDERED: fentaNYL INJECTION 100 MCG/2 ML AMP ONE (07:54)
[2020-08-03] MEDS ORDERED: LIDOCAINE JELLY 2% 6 ML SYRINGE ONE (07:54)
--- NOTE | 2020-08-03 08:52 | Pre-Op Note & Conscious Sedat ---
Pre-Operative Progress Note H&P Reviewed The H&P was reviewed, patient examined and no changes noted. Date H&P Reviewed: Aug 03, 2020 Time H&P Reviewed: 07:40 Conscious Sedation Pre-Proced ASA Score 2 For ASA 3 and 4: Consider anesthesia and medical clearance. Also, for patients with a history of failed moderate sedation consider anesthesia. Airway Lungs Heart ASA score ASA 1: a normal healthy patient ASA 2: a patient with a mild systemic disease (mid diabetes, controlled hypertension, obesity ASA 3: a patient with a severe systemic disease that limits activity (angina, COPD, prior Myocardial infarction) ASA 4: a patient with an incapacitating disease that is a constant threat to life (CHF, renal failure) ASA 5: a moribund patient not expected to survive 24 hrs. (ruptured aneurysm) ASA 6: a declared brain- patient whose organs are being harvested. For emergent operations, add the letter E after the classification Mallampati Classification Grade 2 Sedation Plan Analgesia, Amnesia, Plan communicated to team members, Discussed options with patient/fam, Discussed risks with patient/fam The patient is an appropriate candidate to undergo the planned procedure, sedation, and anesthesia. The patient immediately re-assessed prior to indication. DAHLIA WATTS MD Aug 03, 2020 08:52
--- NOTE | 2020-08-03 15:21 | OPERATIVE REPORT ---
DATE OF SERVICE: COLONOSCOPY SUMMARY INDICATION FOR THE PROCEDURE: History of colon polyps as well as constipation. DESCRIPTION OF PROCEDURE: The patient was placed in the left lateral decubitus position. Prior to undergoing colonoscopy, digital rectal evaluation was performed. Anal sphincter tone was normal and the perianal reflexes intact. There is surgical absence of the prostate with an otherwise unremarkable digital inspection of the rectum. No mass or abnormality is noted on palpation of the previous prostate bed. The colonoscope was then inserted into the rectum and under direct visualization advanced to cecum. The cecum was identified by identification of ileocecal valve and cecal strap. Photographic documentation was obtained. Quality of the prep was good. The patient tolerated the procedure well. FINDINGS: There was no evidence for internal or external hemorrhoids and the rectum was unremarkable. Present in the distal sigmoid colon was a diminutive adenomatous appearing polyp measuring 3 to 4 mm in size. It was photographed and biopsied and ablated and submitted for histopathology with no subsequent blood loss. A moderate number of small to medium size sigmoid diverticulum were present without evidence for diverticulitis. No other sigmoid colonic abnormalities were appreciated. The descending colon, splenic flexure, transverse colon, hepatic flexure, ascending colon and cecum were unremarkable. ASSESSMENT: 1. One diminutive adenomatous appearing polyp was removed from the distal sigmoid colon. As long as there are no surprises on histopathology report, would advocate consideration for repeat surveillance colonoscopy in 5 years. 2. Moderate diverticular disease confined to the sigmoid colon was present without evidence for diverticulitis. Advocated regular physical activity. Increase fiber including fiber supplementation in the diet and increase fluid intake in regards to constipation recommendations. He does have Linzess on hand to take on a p.r.n. basis if need be. I thank you for the referral of this pleasant gentleman. Job ID: [id number] DocumentID: [id number] Dictated Date: 08/03/2020 10:26:26 Model Engine Mechanic Date: 08/03/2020 15:20:25 Dictated By: DAHLIA WATTS MD
== END 2020-08-03 09:30 | disposition home or self-care (01) ==
LOC: ENDO 07:25
PROVIDERS: ATTEND Internal Medicine
DX: D12.5 Benign neoplasm of sigmoid colon (principal); I10 Essential (primary) hypertension; K57.30 Diverticulosis of large intestine without perforation or abscess without bleeding; K59.00 Constipation, unspecified; Z86.010 Personal history of colon polyps; Z90.79 Acquired absence of other genital organ(s); Z85.46 Personal history of malignant neoplasm of prostate; Z87.891 Personal history of nicotine dependence; Z20.822 Contact with and (suspected) exposure to COVID-19; Z80.0 Family history of malignant neoplasm of digestive organs
CPT/HCPCS: 88305

== ENCOUNTER → 2021-11-20 | Outpatient (CLI) | payer MEDICARE, OTHER ==
[~2021-11-20] MED LIST changes: -D5 LR IV SOLUTION 1,000 ML IV ONE; -DOCU-238 PO; +DOCU-26 PO
--- NOTE | 2021-11-20 12:12 | Diagnostic Imaging Report ---
EXAMINATION: CT head without contrast. TECHNIQUE: Multiple contiguous axial images were obtained through the brain without the use of intravenous contrast. All CT scans use one or more of the following dose optimizing techniques: automated exposure control, MA and/or KvP adjustment based on patient size and exam type or iterative reconstruction. HISTORY: Right-sided weakness. Concern for stroke. History of prostate cancer. COMPARISON: None available. FINDINGS: No large acute territorial ischemia, mass, or hemorrhage. No midline shift or mass effect. Decreased attenuation is seen in the periventricular and subcortical white matter. The ventricles and cortical sulci are prominent. The basilar cisterns are patent and unremarkable. The orbits are normal. Retained secretions are seen in the bilateral sphenoid sinuses. Mastoid air cells are clear. No soft tissue abnormality is seen. No osseus lesions or fractures are seen. IMPRESSION: 1. No large acute territorial ischemia, mass, or hemorrhage. 2. Chronic microvascular disease. 3. Generalized parenchymal volume loss. 4. 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 Dictated by: Dictated on workstation # [id number]
== END ==
LOC: RAD 12:00
PROVIDERS: ATTEND Internal Medicine
DX: I69.351 Hemiplegia and hemiparesis following cerebral infarction affecting right dominant side (principal); J32.9 Chronic sinusitis, unspecified; Z85.46 Personal history of malignant neoplasm of prostate
CPT/HCPCS: 70450

== ENCOUNTER → 2021-12-26 | Outpatient (CLI) | payer MEDICARE, OTHER ==
--- NOTE | 2021-12-26 15:40 | Diagnostic Imaging Report ---
INDICATION: Cough. TIME OF EXAM: 1:43 PM. COMPARISON: No prior studies are available for comparison. FINDINGS: The heart size is normal. The pulmonary vascularity is unremarkable. The lungs are clear. No infiltrate, effusion, or pneumothorax is detected. IMPRESSION: No acute cardiopulmonary process is detected. Dictated by: Dictated on workstation # [id number]
== END ==
LOC: RAD 13:20
PROVIDERS: ATTEND Internal Medicine
DX: R05.9 Cough, unspecified (principal)
CPT/HCPCS: 71046

== ENCOUNTER → 2022-05-29 | Outpatient (CLI) | payer MEDICARE, OTHER ==
--- NOTE | 2022-05-29 12:00 | Diagnostic Imaging Report ---
Clinical Indication: Patient drooling with tremors x1 month. Patient has history of mini-strokes. Exam: Axial CT scan of the brain without IV contrast with coronal and sagittal reformatted images. Auto Exposure Controls were utilized during the CT exam to meet ALARA standards for radiation dose reduction. Comparison: Head CT without contrast dated 11/20/2021. Findings: There is no evidence of acute cerebral infarct, intracranial hemorrhage, or gross mass effect. 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 There are stable patchy and confluent areas of low-attenuation white matter changes involving both cerebral hemispheres and right anterior internal capsule region. There are also low-attenuation white matter changes involving the periventricular regions. There is brain parenchymal volume loss which appears appropriate for patient's age. There is no hydrocephalus, brain herniation or midline shift. Basal cisterns are unremarkable. The extracranial soft tissue, skull, and orbits are unremarkable. Mastoid air cells are clear. IMPRESSION: 1: Stable CT scan of the brain with no interval evidence of acute intracranial process. 2: Stable small chronic infarct involving the high posterior left frontal lobe region. 3: Again seen, diffuse chronic small vessel ischemic disease and leukoaraiosis. Dictated by: Dictated on workstation # [id number]
== END ==
LOC: RAD 11:12
PROVIDERS: ATTEND Nurse Practitioner Family
DX: I63.9 Cerebral infarction, unspecified (principal); I67.82 Cerebral ischemia; I67.81 Acute cerebrovascular insufficiency
CPT/HCPCS: 70450